=== PATIENT | male | born 1955 | race Hispanic/Latino ===

== ENCOUNTER 2017-10-27 12:10 | Emergency (ER) | payer BC ==
[2017-10-27 12:47] VITALS: BMI 24.3
[2017-10-27 12:58] VITALS: RESP 18
--- NOTE | 2017-10-27 12:59 | ED PDOC ---
Arrival/HPI - General Time Seen by Provider: 10/27/17 12:47 Historian: Patient - History of Present Illness Narrative History of Present Illness (Text): 10/27/17 12:53 A 62 year old male, whose past medical history includes COPD and smoking, presents to the emergency department complaining of 5 day duration fever and chills, recalcitrant to a 5 day course of Prednisone prescribed by his PMD, Dr. Peterson. He notes that his symptoms began about a week ago after [place] was [place] a boat. As per the patient, he states his PMD contributed his symptoms to possible heat stroke. He states that his symptoms have been ongoing and has had increasing malaise, decreased appetite, and chronic intermittent sinusitidies. He also notes that he has not had his prostate examined and has noticed mild amount of urinary frequency. The patient denies headache, dizziness, chest pain , shortness of breath, dyspnea on exertion, abdominal pain, nausea, vomiting, diarrhea, back pain, neck pain, bowel changes, exquisite unilateral facial pain , mucopurulent discharge per nares, increasing production of mucus or any other complaint. PMD: Dr. Peterson Time/Duration: Other (5 Days) Symptom Onset: Sudden Symptom Course: Unchanged Activities at Onset: Rest, Light Context: Home Past Medical History - Provider Review Nursing Documentation Reviewed: Yes Family/Social History - Physician Review Nursing Documentation Reviewed: Yes Family/Social History: No Known Family HX Allergies/Home Meds Allergies/Adverse Reactions: Allergies No Known Allergies Allergy (Verified 10/27/17 12:47) Home Medications: Home Meds Medication Instructions Recorded Confirmed Multi Vitamin 1 tab PO DAILY 10/27/17 Sertraline [Zoloft] 0 mg PO DAILY 10/27/17 10/27/17 predniSONE [Prednisone] 20 mg PO DAILY 10/27/17 10/27/17 Review of Systems - Physician Review All systems were reviewed & negative as marked: Yes - Review of Systems Constitutional: Fevers. absent: Night Sweats ENT: absent: Sore Throat, Rhinorrhea Respiratory: Cough. absent: SOB Cardiovascular: absent: Chest Pain, LEE Gastrointestinal: Appetite Changes (Decreased). absent: Abdominal Pain, Stool Changes, Diarrhea, Nausea, Vomiting Genitourinary Male: Frequency Musculoskeletal: absent: Back Pain, Neck Pain Neurological: absent: Headache, Dizziness Physical Exam Vital Signs Reviewed: Yes Vital Signs Temp Pulse Resp BP Pulse Ox 10/27/17 14:54 99.5 F 80 18 107/67 98 10/27/17 12:38 99.2 F 84 18 107/63 99 Temperature: Afebrile Blood Pressure: Normal Pulse: Regular Respiratory Rate: Normal Appearance: Positive for: Well-Appearing, Non-Toxic, Comfortable Pain Distress: None Mental Status: Positive for: Alert and Oriented X 3 - Systems Exam Head: Present: Atraumatic, Normocephalic Pupils: Present: PERRL Extroacular Muscles: Present: EOMI Conjunctiva: Present: Normal Mouth: Present: Moist Mucous Membranes Neck: Present: Normal Range of Motion Respiratory/Chest: Present: Rhonchi (Ocassional rhonchi.). No: Good Air Exchange (Decreased i/e ratio.) Cardiovascular: Present: Regular Rate and Rhythm, Normal S1, S2. No: Murmurs Abdomen: No: Tenderness, Distention, Peritoneal Signs Back: Present: Normal Inspection Upper Extremity: Present: Normal Inspection. No: Cyanosis, Edema Lower Extremity: Present: Normal Inspection. No: Edema Neurological: Present: GCS=15, CN II-XII Intact, Speech Normal Skin: Present: Warm, Dry, Normal Color. No: Rashes Psychiatric: Present: Alert, Oriented x 3, Normal Insight, Normal Concentration Medical Decision Making ED Course and Treatment: 10/27/17 13:03 Impression: A 62 year old male presents to the emergency department complaining of fever, chills, increasing malaise, decreased appetite, increased cough and post-nasal drip. Plan: -- EKG -- Chest X-ray -- Labs -- Urinalysis -- Blood/Urine Culture -- Tylenol and Lactated Ringer -- Reassess and disposition Progress Notes: 10/27/17 14:40 EKG: Ordered, reviewed, and independently interpreted the EKG. Rate : 81 BPM Rhythm : NSR Interpretation : No ischemic ST-T segments. No arrhythmogenic intervals 10/27/17 15:18: Case discussed in detail with Dr. Peterson. Concurred with outpatient management with antibiotics ( doxycycline course), additional hydration and early follow up, along with pending with blood/urine culture/ legionella ur AG / legoinalle titer. Chest X-ray read and interpreted by me shows mild interstitial prominence, no lobar consolidated finding. 10/27/17 15:33 - Lab Interpretations Lab Results: 10/27/17 13:46 10/27/17 14:20 Lab Results 10/27/17 14:20: Sodium 139, Chloride 101, Potassium 4.3, Carbon Dioxide 25, Anion Gap 17, BUN 16, Creatinine 0.8, Est GFR ( Amer) > 60, Est GFR (Non- Af Amer) > 60, Random Glucose 105, Calcium 9.0, Total Bilirubin 0.5, AST 142 H, ALT 181 H, Alkaline Phosphatase 148 H, Total Protein 7.2, Albumin 4.2, Globulin 3.0, Albumin/Globulin Ratio 1.4 10/27/17 14:20: PT 13.2 H, INR 1.15 H, APTT 30.8 10/27/17 13:46: pO2 26 L, VBG pH 7.34, VBG pCO2 54.0, VBG HCO3 29.1 H, VBG Total CO2 30.8 H, VBG O2 Sat (Calc) 50.6, VBG Base Excess 2.2 H, VBG Potassium 6.2 H*, Sodium 135.0, Chloride 102.0, Glucose 112 H, Lactate 1.5, FiO2 21.0, Venous Blood Potassium 6.2 H* 10/27/17 13:46: WBC 16.4 H, RBC 5.66, Hgb 14.0, Hct 41.0 L, MCV 72.4 L, MCH 24.7 L, MCHC 34.1, RDW 16.1 H, Plt Count 210, MPV 9.5, Gran % 77.7 H, Lymph % ( Auto) 13.2 L, [place] % (Auto) 8.8 H, Eos % (Auto) 0.2 L, Baso % (Auto) 0.1, Gran # 12.73 H, Lymph # (Auto) 2.2, [place] # (Auto) 1.5 H, Eos # (Auto) 0.0, Baso # ( Auto) 0.02, ESR 26 H 10/27/17 13:30: Influenza Typ A,B (EIA) Negative for flu a/b 10/27/17 13:29: Urine Color Straw, Urine Appearance Clear, Urine pH 6.5, Ur Specific [place] <= 1.005, Urine Protein Negative, Urine Glucose (UA) Negative, Urine Ketones Negative, Urine Blood Trace-intact H, Urine Nitrate Negative, Urine Bilirubin Negative, Urine Urobilinogen 0.2, Ur Leukocyte Esterase Negative , Urine RBC 0 - 2, Urine WBC 0 - 2, Ur Epithelial Cells 0 - 2, Urine Bacteria Trace I have reviewed the lab results: Yes - RAD Interpretation Radiology Orders: 10/27/17 12:49 CHEST PORTABLE [RAD] Stat - EKG Interpretation Interpreted by ED Physician: Yes Type: 12 lead EKG - Medication Orders Current Medication Orders: Ibuprofen (Motrin Tab) 800 mg PO STAT STA Stop: 10/27/17 15:32 Discontinued Medications Acetaminophen (Tylenol 325mg Tab) 975 mg PO STAT STA Stop: 10/27/17 13:57 Last Admin: 10/27/17 13:57 Dose: 975 mg MAR Pain/Vitals Document 10/27/17 13:57 EQ (Rec: 10/27/17 13:58 EQ [id number]) Pain Reassessment Is This A Pain ReAssessment? No Sleep Is patient sleeping during reassessment? No Presence of Pain Presence of Pain Yes Doxycycline Hyclate (Doryx) 100 mg PO STAT STA PRN Reason: Protocol Stop: 10/27/17 14:44 Lactated Ringer's 1,000 ml/ IV (SUPPLIES) 1,000 mls @ 4,626.66 mls/hr IV ONCE ONE PRN Reason: 60 ML/KG/HR Stop: 10/27/17 12:50 Last Admin: 10/27/17 13:58 Dose: 4,626.66 mls/hr eMAR Start Stop Document 10/27/17 13:58 EQ (Rec: 10/27/17 13:58 EQ [id number]) Intravenous Solution Start Date 10/27/17 Start Time 13:58 - Scribe Statement The provider has reviewed the documentation as recorded by the Omeribmitch Bailon Provider Scribe Attestation: All medical record entries made by the Scribe were at my direction and personally dictated by me. I have reviewed the chart and agree that the record accurately reflects my personal performance of the history, physical exam, medical decision making, and the department course for this patient. I have also personally directed, reviewed, and agree with the discharge instructions and disposition. Disposition/Present on Arrival - Present on Arrival Any Indicators Present on Arrival: No History of DVT/PE: No History of Uncontrolled Diabetes: No Urinary Catheter: No History of Decub. Ulcer: No History Surgical Site Infection Following: None - Disposition Have Diagnosis and Disposition been Completed?: Yes Diagnosis: Upper respiratory infection, Transaminitis Disposition: HOME/ ROUTINE Disposition Time: 15:36 Patient Plan: Discharge Condition: FAIR Discharge Instructions (ExitCare): Bacterial Upper Respiratory Infection, Adult (DC) Print Language: TURKMEN Additional Instructions: Please take the antibiotics as ordered. At ths point in time your working diagnosis is upepr repsirtaory infection / early sinusitides vs early legionella nfection. You have been prescibed a course of antiobitics and will be advised to get extra rest and to drink 2.5- 3L daily to enusre hydration. Prescriptions: Doxycycline Monohydrate 100 mg PO BID #20 tablet Ibuprofen [Motrin Tab] 600 mg PO Q6 PRN #40 tab PRN Reason: Fever >100.4 F Referrals: Mikey Peterson MD [Primary Care Provider] - Follow up with primary
[2017-10-27 13:32] LABS: PH,URINE 6.5 (4.7-8.0); URINE BILIRUBIN NEGATIVE (NEGATIVE); URINE BLOOD TRACE-INTACT (NEGATIVE); URINE GLUCOSE (UA) NEGATIVE (NEGATIVE); URINE LEUKOCYTE ESTERASE NEGATIVE Leu/uL (NEGATIVE); URINE PROTEIN NEGATIVE mg/dL (<30 mg/dL); URINE UROBILINOGEN 0.2 E.U./dL (<1 E.U./dL)
[2017-10-27 13:34] LABS: URINE APPEARANCE CLEAR (CLEAR); URINE COLOR STRAW (YELLOW)
[2017-10-27 13:37] LABS: URINE BACTERIA TRACE (NEG); URINE EPITHELIAL CELLS 0 - 2 /hpf (0-5); URINE RBC 0 - 2 /hpf (0-2); URINE WBC 0 - 2 /hpf (0-6)
[2017-10-27 13:55] LABS: VENOUS BLOOD GAS BASE EXCESS 2.2 mmol/L (0.0-2.0); VENOUS BLOOD GAS PO2 26 mm/Hg (30-55); VENOUS BLOOD PH 7.34 (7.32-7.43)
[2017-10-27 13:57] LABS: BASO # 0.02 K/mm3 (0.0-2.0); BASO % 0.1 % (0.0-3.0); EOS % 0.2 % (1.5-5.0); GRAN # 12.73 (1.4-6.5); GRAN % 77.7 % (50.0-68.0); LYMPH # 2.2 (1.2-3.4); LYMPH % 13.2 % (22.0-35.0); MEAN CELL VOLUME 72.4 fl (80.0-105.0); MEAN CORPUSCULAR HEMOGLOBIN 24.7 pg (25.0-35.0); MEAN CORPUSCULAR HGB CONC 34.1 g/dl (31.0-37.0); MEAN PLATELET VOLUME 9.5 fl (7.0-11.0); MONO # 1.5 (0.1-0.6); MONO % 8.8 % (1.0-6.0); RBC 5.66 10^6/uL (3.5-6.1); RED CELL DISTRIBUTION WIDTH 16.1 % (11.5-14.5); WHITE BLOOD COUNT 16.4 10^3/ul (4.5-11.0)
[2017-10-27 14:34] LABS: ALB/GLOB RATIO 1.4 (1.1-1.8); ALBUMIN 4.2 g/dL (3.0-4.8); ALT/SGPT 181 U/L (7-56); AST/SGOT 142 U/L (17-59); BLOOD UREA NITROGEN 16 mg/dL (7-21); GFR AFRICAN-AMERICAN > 60; GFR NON-AFRICAN AMERICAN > 60
[2017-10-27 14:35] LABS: INR 1.15 (0.93-1.08); PARTIAL THROMBOPLASTIN TIME 30.8 Seconds (25.1-36.5); PROTHROMBIN TIME 13.2 SECONDS (9.4-12.5)
[2017-10-27 14:55] VITALS: TEMP 99.5
[2017-10-27 16:43] VITALS: BP 108/65; PULSE 76; O2SAT 99
--- NOTE | 2017-10-27 16:53 | RAD ---
HISTORY: Sepsis Patient COMPARISON: The the the the FINDINGS: LUNGS: No active pulmonary disease. PLEURA: No significant pleural effusion identified, no pneumothorax apparent. CARDIOVASCULAR: Normal. OSSEOUS STRUCTURES: No significant abnormalities. VISUALIZED UPPER ABDOMEN: Normal. OTHER FINDINGS: None. IMPRESSION: No active disease.
[2017-10-28 08:41] LABS: HEPATITIS B SURFACE AG Negative (NEGATIVE)
[2017-10-28 08:48] LABS: HEPATITIS A IGM NEGATIVE (NEGATIVE); HEPATITIS B CORE AB NEGATIVE (NEGATIVE)
[2017-10-28 11:01] LABS: HEPATITIS C ANTIBODY REACTIVE (NEGATIVE)
--- NOTE | 2017-10-28 13:14 | CARD ---
APPROVED REPORT EKG Measurement Heart [id number] <Conclusion> Normal sinus rhythm Septal infarct, age undetermined Abnormal ECG
== END 2017-10-27 16:20 | disposition home or self-care (01) ==
LOC: ED 12:10
DX: J06.9 Acute upper respiratory infection, unspecified (principal); R74.0 Nonspecific elevation of levels of transaminase and lactic acid dehydrogenase [LDH]
CPT/HCPCS: 71045; 80053; 80074; 81001; 82803; 85025; 85610; 85651; 85730; 87040; 87086; 87449; 87804; 93005; 99284; J7120